=== PATIENT | male | born 1985 | race Caucasian/White ===

== ENCOUNTER 2024-06-10 23:53 | Emergency (ER) | payer OTHER ==
[2024-06-11 00:07] VITALS: BP 125/93; PULSE 77; RESP 19; TEMP 97.4
== END 2024-06-11 01:58 | disposition left against medical advice (07) ==
LOC: EC 23:53
DX: Z53.21 Procedure and treatment not carried out due to patient leaving prior to being seen by health care provider (principal)
CPT/HCPCS: 99499